=== PATIENT | male | born 1960 | race Caucasian/White ===

== ENCOUNTER 2017-11-26 12:26 | Outpatient (CLI) | payer MEDICARE ==
[2017-11-26 13:01] LABS: CREATININE 0.7 mg/dL (0.6-1.2)
[2017-11-26] MEDS ORDERED: GADOBUTROL 7.5 MMOL/7.5 ML VIAL ONE (13:22)
[2017-11-26] MEDS ORDERED: GADOBUTROL 7.5 MMOL/7.5 ML VIAL IVP ONE (14:02)
--- NOTE | 2017-11-26 17:28 | MRI Report ---
Procedure Date: 11/26/2017 Accession Number: [id number] / [id number] Procedure: MRI - Abdomen W/WO CPT Code: FULL RESULT: EXAM: MR ABDOMEN WITH AND WITHOUT CONTRAST (MR LIVER) EXAM DATE: 11/26/2017 02:04 PM. CLINICAL HISTORY: Abnormal finding on gi tract imaging. Hepatitis C with multiple liver lesions. COMPARISON: Abdomen with and without 03/03/2017 9:00 AM. TECHNIQUE: Multiplanar breath-hold T1, T2, and DWI sequences obtained through the abdomen on an MR scanner. Images obtained before and after administration of 7.5 mL Gadavist intravenous contrast. Multiphase postcontrast images obtained of the liver and abdomen. There is more patient motion artifact on today's exam compared to prior MRI. FINDINGS: Lung Bases: Unremarkable. Liver: Cirrhotic morphology with nodular liver contour. No focal fat demonstrated. T2 hyperintense posterior left liver dome lesion with peripheral, nodular discontinuous and progressive enhancement again noted. Today it measures 5.1 x 4.1 cm, previously 5.5 x 3.9 cm. Stable hemangioma. 0.8 cm segment 4A hemangioma series 501 image 25, previously 1 cm. Stable. This and the above hemangioma have T2 shine-through on diffusion series. Stable right liver lobe hemangioma along junction of segments 5 and 8 measuring 2.5 x 2.7 cm today, previously 2.5 x 2.9 cm. Peripheral nodular discontinuous and progressive enhancement. Stable arterial phase hyperintense observation within posterior aspect of segment 8 on series 1001 image 84 measuring 1.2 x 0.8 cm, previously 1.3 x 1.1 cm. LI-RADS 3 observation. Gallbladder: Distended gallbladder with dependent stones. No wall thickening or biliary ductal dilatation. Pancreas: Pancreas divisum. No edema or main ductal dilatation. No pancreatic mass. Spleen: Small focus of blooming artifact along posterior splenic contour. No splenomegaly. Kidneys and Adrenals: The kidneys appear normal with no mass or hydronephrosis. The adrenals appear normal. Bowel: The small bowel and colon appear normal with no inflammation or obstruction. Retroperitoneum: The retroperitoneal structures appear normal with no mass or lymphadenopathy. IMPRESSION: 1. Cirrhotic liver. 2. Stable appearance of two dominant lesions having imaging features characteristic for hemangiomas. These measure up to 5.1 cm in the posterior left liver dome and 2.7 cm within peripheral aspect of right liver lobe. 3. Stable 1.2 cm LI-RADS 3 observation posterior aspect of segment 8. Present MRI had more motion artifact than prior exam. Suggest a six-month follow-up MRI. 4. Cholelithiasis. [facility]
== END 2017-11-26 12:27 | disposition home or self-care (01) ==
LOC: DI 12:26
PROVIDERS: ATTEND Internal Medicine Gastroenterology
DX: R93.2 Abnormal findings on diagnostic imaging of liver and biliary tract (principal); K74.60 Unspecified cirrhosis of liver; K76.9 Liver disease, unspecified; K80.20 Calculus of gallbladder without cholecystitis without obstruction
CPT/HCPCS: 36415; 74183; 82565; A9585